=== PATIENT | male | born 1980 | race Hispanic/Latino ===

== ENCOUNTER 2016-10-24 09:29 | Emergency (ER) | payer MEDICAID, OTHER ==
[2016-10-24 09:30] VITALS: BMI 34.8
[2016-10-24 09:37] VITALS: RESP 16; TEMP 98.1
[2016-10-24] MEDS ORDERED: Sodium Chloride 0.9% 1,000 ML IV STA (10:01)
--- NOTE | 2016-10-24 10:15 | ED PDOC ---
Arrival/HPI - General Chief Complaint: Abdominal Pain Time Seen by Provider: 10/24/16 10:00 Historian: Patient - History of Present Illness Narrative History of Present Illness (Text): 10/24/16 10:12 36-year-old male presents today with right-sided abdominal pain and periumbilical pain. Patient states for the past 2 weeks he's noticed this uneasy feeling in the abdomen. There's been no nausea vomiting or diarrhea. He denies constipation. Patient states he's felt a lump around the periumbilical region. He states his been gradually worsening. Denies chest pain or shortness of breath. No urinary symptoms. No testicular pain. No medications have been taken for pain at home. He denies fevers or chills. Denies any recent trauma or injury. No other complaints Quality: Aching Severity Level: 1 Past Medical History - Provider Review Nursing Documentation Reviewed: Yes - Travel History Have you recently traveled outside [place] w/in the past 3 mons?: No - Tetanus Immunization Tetanus Immunization: Unknown - Past Medical History Past Medical History: No Previous - Cardiac Hx Cardiac Disorders: No - Pulmonary Hx Respiratory Disorders: No - Neurological Hx Neurological Disorder: No - HEENT Hx HEENT Disorder: No - Renal Hx Renal Disorder: No - Endocrine/Metabolic Hx Endocrine Disorders: No - Hematological/Oncological Hx Blood Disorders: No - Integumentary Hx Dermatological Disorder: No - Musculoskeletal/Rheumatological Hx Musculoskeletal Disorders: No - Gastrointestinal Hx Gastrointestinal Disorders: No - Genitourinary/Gynecological Hx Genitourinary Disorders: No - Psychiatric Hx Psychophysiologic Disorder: Yes Hx Anxiety: Yes Hx Bipolar Disorder: Yes Hx Depression: Yes Hx Post Traumatic Stress Disorder: Yes Hx Substance Use: Yes (COCAINE) - Past Surgical History Past Surgical History: No Previous - Suicidal Assessment Feels Threatened In Home Enviroment: No Family/Social History - Physician Review Nursing Documentation Reviewed: Yes Family/Social History: Unknown Family HX Smoking Status: Current Some Days Smoker Hx Alcohol Use: Yes (HX OF ABUSE) Hx Substance Use: Yes (COCAINE) Substance used: COCAINE, HEROIN Hx Substance Use Treatment: Yes Allergies/Home Meds Allergies/Adverse Reactions: Allergies No Known Allergies Allergy (Verified 10/24/16 09:31) Home Medications: Home Meds Medication Instructions Recorded Confirmed Gabapentin [Neurontin] 600 mg PO BID 01/28/16 05/29/17 Review of Systems - Review of Systems Constitutional: absent: Fatigue, Fevers Respiratory: absent: SOB, Cough Cardiovascular: absent: Chest Pain, Palpitations Gastrointestinal: Abdominal Pain. absent: Constipation, Diarrhea, Nausea, Vomiting Genitourinary Male: absent: Dysuria, Frequency, Hematuria Musculoskeletal: absent: Arthralgias, Back Pain, Neck Pain Skin: absent: Rash, Pruritis Neurological: absent: Headache, Dizziness Psychiatric: absent: Anxiety, Depression Physical Exam Vital Signs Reviewed: Yes Vital Signs Temp Pulse Resp BP Pulse Ox 10/24/16 12:15 59 L 16 109/67 100 10/24/16 11:14 53 L 16 118/69 98 10/24/16 10:54 64 16 111/67 98 10/24/16 09:45 76 16 127/69 99 10/24/16 09:35 98.1 F 76 16 121/76 97 Temperature: Afebrile Blood Pressure: Normal Pulse: Regular Respiratory Rate: Normal Appearance: Positive for: Well-Appearing, Non-Toxic, Comfortable Pain Distress: None Mental Status: Positive for: Alert and Oriented X 3 - Systems Exam Head: Present: Atraumatic Mouth: Present: Moist Mucous Membranes Neck: Present: Normal Range of Motion Respiratory/Chest: Present: Clear to Auscultation, Good Air Exchange. No: Respiratory Distress, Accessory Muscle Use Cardiovascular: Present: Regular Rate and Rhythm, Normal S1, S2. No: Murmurs Abdomen: Present: Tenderness (+ minimal periumbulical tenderness and rlq tenderness. + small umbilical hernia noted. no erythema), Normal Bowel Sounds. No: Distention, Peritoneal Signs Back: Present: Normal Inspection. No: CVA Tenderness Neurological: Present: GCS=15, Speech Normal Skin: Present: Warm, Dry, Normal Color. No: Rashes Psychiatric: Present: Alert, Oriented x 3 Medical Decision Making ED Course and Treatment: 10/24/16 10:14 Patient is nontoxic well appearing with stable vital signs presenting with abdominal pain CBC wnl CMPwnl Lipase wnl Urinalysis wnl CAT scan:FINDINGS: LOWER THORAX: Unremarkable. LIVER: Unremarkable. No gross lesion or ductal dilatation. GALLBLADDER AND BILE DUCTS: Unremarkable. PANCREAS: Unremarkable. No gross lesion or ductal dilatation. SPLEEN: Unremarkable. ADRENALS: Unremarkable. No mass. KIDNEYS AND URETERS: Unremarkable. No hydronephrosis. No solid mass. VASCULATURE: Unremarkable. No aortic aneurysm. BOWEL: Inflammatory changes are seen around the cecum. Several diverticula are seen. Findings are consistent with cecal diverticulitis. The findings are best appreciated on coronal images 48-55 APPENDIX: Normal appendix. PERITONEUM: Unremarkable. No free fluid. No free air. LYMPH NODES: UnrEmarkable. No enlarged lymph nodes. BLADDER: There is mild mural thickening in the bladder. This may be due to lack of distension. REPRODUCTIVE: Unremarkable. BONES: No acute fracture. OTHER FINDINGS: None. IMPRESSION: Inflammatory changes around the cecum with several diverticula consistent with cecal diverticulitis. The appendix is normal Patient reassessment: pt c/o pain rlq. minimal tenderness Discussed all results with patient in depth offered patient admission to the hospital for diverticulitis. pt without insurance.without f/u. pt states he cant stay in the hospital. will given PO cipro and flagyl rx. Patient has been advised to not leave the emergency room but has decided to go AGAINST MEDICAL ADVICE. The patient possesses capacity to make decisions and has voiced understanding to all my warnings of potential worsening of the condition for which medical care was sought. I have discussed all known and potential risks and consequences to the patient leaving AGAINST MEDICAL ADVICE. Patient is leaving against medical advise. AMA form signed. witness by LUIS Wick. Impression: diverticulitis Motrin every 6 hours as needed for pain Cipro one tablet twice daily. x10 days Flagyl one tablet three times daily x10 days Follow up with primary care physician within the next 2 days Follow up with the Gi doctor within the next 2 days. Return immediately if symptoms worsen persist or if new symptoms develop: High fevers, increasing pain, vomiting, diarrhea or any other concerning symptoms develop 10/24/16 12:55 - Lab Interpretations Lab Results: 10/24/16 10:00 10/24/16 10:00 Lab Results 10/24/16 10:00: WBC 9.5, RBC 4.67, Hgb 14.8, Hct 42.6, MCV 91.2, MCH 31.7, MCHC 34.7, RDW 12.8, Plt Count 162, MPV 12.3 H, Gran % 73.4 H, Lymph % (Auto) 17.3 L , [place] % (Auto) 7.3 H, Eos % (Auto) 1.8, Baso % (Auto) 0.2, Gran # 6.94 H, Lymph # 1.6, [place] # 0.7 H, Eos # 0.2, Baso # 0.02 10/24/16 10:00: Sodium 137, Potassium 4.4, Chloride 104, Carbon Dioxide 27, Anion Gap 10, BUN 14, Creatinine 0.7, Est GFR ( Amer) > 60, Est GFR (Non- Af Amer) > 60, Random Glucose 84, Calcium 9.6, Total Bilirubin 1.2, AST 26, ALT 23, Alkaline Phosphatase 75, Total Protein 7.3, Albumin 4.2, Globulin 3.1, Albumin/Globulin Ratio 1.4, Lipase 97 10/24/16 10:00: Urine Color Yellow, Urine Appearance Clear, Urine pH 6.5, Ur Specific [place] 1.010, Urine Protein Negative, Urine Glucose (UA) Negative, Urine Ketones Negative, Urine Blood Negative, Urine Nitrate Negative, Urine Bilirubin Negative, Urine Urobilinogen 0.2, Ur Leukocyte Esterase Negative - RAD Interpretation Radiology Orders: 10/24/16 10:01 ABD & PELVIS IV CONTRAST ONLY [CT] Stat - Medication Orders Current Medication Orders: Discontinued Medications Ciprofloxacin (Cipro) 500 mg PO ONCE STA PRN Reason: Protocol Stop: 10/24/16 12:50 Sodium Chloride (Sodium Chloride 0.9%) 1,000 mls @ 999 mls/hr IV .Q1H1M STA Stop: 10/24/16 11:01 Last Admin: 10/24/16 10:15 Dose: 999 mls/hr Iohexol (Omnipaque 350 100 Ml) Confirm Administered Dose 350 mg .ROUTE .STK-MED ONE Stop: 10/24/16 10:23 Metronidazole (Flagyl) 500 mg PO STAT STA PRN Reason: Protocol Stop: 10/24/16 12:50 Disposition/Present on Arrival - Present on Arrival Any Indicators Present on Arrival: No History of DVT/PE: No History of Uncontrolled Diabetes: No Urinary Catheter: No History of Decub. Ulcer: No History Surgical Site Infection Following: None - Disposition Have Diagnosis and Disposition been Completed?: Yes Diagnosis: Diverticulitis Disposition: AGAINST MEDICAL ADVICE Disposition Time: 12:45 Patient Plan: Other (AMA) Condition: FAIR Discharge Instructions (ExitCare): Diverticulitis (ED) Additional Instructions: Motrin every 6 hours as needed for pain Cipro one tablet twice daily. x10 days Flagyl one tablet three times daily x10 days Follow up with primary care physician within the next 2 days Follow up with the Gi doctor within the next 2 days. Return immediately if symptoms worsen persist or if new symptoms develop: High fevers, increasing pain, vomiting, diarrhea or any other concerning symptoms develop RETURN IF YOU WISH TO CONTINUE YOUR CARE. Prescriptions: Ciprofloxacin [Cipro] 500 mg PO BID #20 tab Ibuprofen [Motrin] 600 mg PO Q6H PRN #20 tab PRN Reason: pain/fever reduction metroNIDAZOLE [Flagyl] 500 mg PO TID #30 tab Referrals: Nik Paul MD [Staff Provider] - Follow up with primary Cristiano Garcia MD [Staff Provider] - [place] up [place] [facility] [place] [facility] [place] - Follow up with primary Forms: WORK NOTE
[2016-10-24] MEDS ORDERED: Iohexol 350 MG/100 ML VIAL ONE (10:22)
[2016-10-24 10:24] LABS: ADD MANUAL DIFF? NO
[2016-10-24 10:44] LABS: BASO # 0.02 K/mm3 (0.0-2.0); BASO % 0.2 % (0.0-3.0); EOS # 0.2 (0.0-0.7); EOS % 1.8 % (1.5-5.0); GRAN # 6.94 (1.4-6.5); GRAN % 73.4 % (50.0-68.0); HEMATOCRIT 42.6 % (42.0-52.0); LYMPH # 1.6 (1.2-3.4); LYMPH % 17.3 % (22.0-35.0); MEAN CELL VOLUME 91.2 fL (80.0-105.0); MEAN CORPUSCULAR HEMOGLOBIN 31.7 pg (25.0-35.0); MEAN CORPUSCULAR HGB CONC 34.7 g/dl (31.0-37.0); MEAN PLATELET VOLUME 12.3 fl (7.0-11.0); MONO # 0.7 (0.1-0.6); MONO % 7.3 % (1.0-6.0); PH,URINE 6.5 (4.7-8.0); PLATELET COUNT 162 10^3/uL (120.0-450.0); RED CELL DISTRIBUTION WIDTH 12.8 % (11.5-14.5); URINE BILIRUBIN NEGATIVE (NEGATIVE); URINE BLOOD NEGATIVE (NEGATIVE); URINE GLUCOSE (UA) NEGATIVE (NEGATIVE); URINE KETONE NEGATIVE (NEGATIVE); URINE LEUKOCYTE ESTERASE NEGATIVE Leu/uL (NEGATIVE); URINE PROTEIN NEGATIVE mg/dL (<30 mg/dL); URINE UROBILINOGEN 0.2 E.U./dL (<1 E.U./dL); WHITE BLOOD COUNT 9.5 10^3/ul (4.5-11.0)
[2016-10-24 10:46] LABS: ALB/GLOB RATIO 1.4 (1.1-1.8); ALKALINE PHOSPHATASE 75 U/L (38-133); ALT/SGPT 23 U/L (7-56); AST/SGOT 26 U/L (15-59); BILIRUBIN,TOTAL 1.2 mg/dL (0.2-1.3); BLOOD UREA NITROGEN 14 mg/dL (7-21); CALCIUM 9.6 mg/dL (8.4-10.5); CARBON DIOXIDE 27 mmol/L (21-33); CHLORIDE 104 mmol/L (98-107); GFR AFRICAN-AMERICAN > 60; GLUCOSE,RANDOM 84 mg/dL (70-110); LIPASE 97 U/L (23-300); POTASSIUM 4.4 mmol/L (3.6-5.0); SODIUM 137 mmol/L (132-148); TOTAL PROTEIN 7.3 g/dL (5.8-8.3); URINE APPEARANCE CLEAR (CLEAR); URINE COLOR YELLOW (YELLOW)
[2016-10-24 12:18] VITALS: O2SAT 100
--- NOTE | 2016-10-24 12:26 | CT ---
PROCEDURE: CT Abdomen and Pelvis with contrast HISTORY: abd pain COMPARISON: None. TECHNIQUE: Contrast dose: 100 cc of Omnipaque 350 Radiation dose: Total exam DLP = 1262 mGy-cm. This CT exam was performed using one or more of the following dose reduction techniques: Automated exposure control, adjustment of the mA and/or kV according to patient size, and/or use of iterative reconstruction technique. FINDINGS: LOWER THORAX: Unremarkable. LIVER: Unremarkable. No gross lesion or ductal dilatation. GALLBLADDER AND BILE DUCTS: Unremarkable. PANCREAS: Unremarkable. No gross lesion or ductal dilatation. SPLEEN: Unremarkable. ADRENALS: Unremarkable. No mass. KIDNEYS AND URETERS: Unremarkable. No hydronephrosis. No solid mass. VASCULATURE: Unremarkable. No aortic aneurysm. BOWEL: Inflammatory changes are seen around the cecum. Several diverticula are seen. Findings are consistent with cecal diverticulitis. The findings are best appreciated on coronal images 48-55 APPENDIX: Normal appendix. PERITONEUM: Unremarkable. No free fluid. No free air. LYMPH NODES: Unremarkable. No enlarged lymph nodes. BLADDER: There is mild mural thickening in the bladder. This may be due to lack of distension. REPRODUCTIVE: Unremarkable. BONES: No acute fracture. OTHER FINDINGS: None. IMPRESSION: Inflammatory changes around the cecum with several diverticula consistent with cecal diverticulitis. The appendix is normal
[2016-10-24 13:16] VITALS: BP 133/50; PULSE 63
== END 2016-10-24 13:17 | disposition left against medical advice (07) ==
LOC: ED 09:29
DX: K57.32 Diverticulitis of large intestine without perforation or abscess without bleeding (principal)
CPT/HCPCS: 74177; 80053; 81003; 83690; 85025; 96360; 99285; J7040; Q9967

== ENCOUNTER 2017-08-12 10:28 | Emergency (ER) | payer OTHER ==
[2017-08-12 10:29] VITALS: BMI 34.8
[2017-08-12 10:53] VITALS: TEMP 98.2
--- NOTE | 2017-08-12 11:16 | ED PDOC ---
Arrival/HPI - General Chief Complaint: Abnormal Skin Integrity Time Seen by Provider: 08/12/17 11:01 Historian: Patient - History of Present Illness Narrative History of Present Illness (Text): 08/12/17 11:18 37yr old male presents today with a 2 day history of 2 bumps to the neck and 1 week hx of rash to the lower abdomen over the waistline. pt denies fever/ chills. denies pain. no abdominal pain. no n/v/d/c. no dizziness or weakness. pt states he was worried about the bumps on his neck. pt states the bump started first on the left side of the neck and then he developed a bump on the right side of the neck. pt states they have decreased in size. pt states he did get his trevino trimmed by the jay and then he shaved it himself. pt also states he has a itchy rash to the lower abdomen right were the belt buckle sits. denies pain. no other complaints. Past Medical History - Provider Review Nursing Documentation Reviewed: Yes - Travel History Have you recently traveled outside [place] w/in the past 3 mons?: No - Infectious Disease Hx of Infectious Diseases: None - Tetanus Immunization Tetanus Immunization: Unknown - Past Medical History Past Medical History: No Previous - Cardiac Hx Cardiac Disorders: No - Pulmonary Hx Respiratory Disorders: No - Neurological Hx Neurological Disorder: No - HEENT Hx HEENT Disorder: No - Renal Hx Renal Disorder: No - Endocrine/Metabolic Hx Endocrine Disorders: No - Hematological/Oncological Hx Blood Disorders: No - Integumentary Hx Dermatological Disorder: No - Musculoskeletal/Rheumatological Hx Musculoskeletal Disorders: No - Gastrointestinal Hx Gastrointestinal Disorders: No - Genitourinary/Gynecological Hx Genitourinary Disorders: No - Psychiatric Hx Psychophysiologic Disorder: Yes Hx Anxiety: Yes Hx Bipolar Disorder: Yes Hx Depression: Yes Hx Post Traumatic Stress Disorder: Yes Hx Substance Use: Yes (COCAINE) - Past Surgical History Past Surgical History: No Previous - Anesthesia Hx Anesthesia: No Hx Anesthesia Reactions: No Hx Malignant Hyperthermia: No - Suicidal Assessment Feels Threatened In Home Enviroment: No Family/Social History - Physician Review Nursing Documentation Reviewed: Yes Family/Social History: Unknown Family HX Smoking Status: Current Some Days Smoker Hx Alcohol Use: No (HX OF ABUSE) Hx Substance Use: Yes (COCAINE) Substance used: COCAINE, HEROIN Hx Substance Use Treatment: Yes Allergies/Home Meds Allergies/Adverse Reactions: Allergies No Known Allergies Allergy (Verified 08/12/17 10:53) Home Medications: Home Meds Medication Instructions Recorded Confirmed Gabapentin [Neurontin] 1,800 mg PO DAILY 06/25/15 08/12/17 Review of Systems - Review of Systems Constitutional: absent: Fatigue, Fevers Respiratory: absent: SOB, Cough Cardiovascular: absent: Chest Pain, Palpitations Gastrointestinal: absent: Abdominal Pain, Nausea, Vomiting Genitourinary Male: absent: Dysuria, Frequency Musculoskeletal: absent: Arthralgias, Back Pain, Neck Pain Skin: Rash, Pruritis Neurological: absent: Headache, Dizziness Psychiatric: absent: Anxiety, Depression Physical Exam Vital Signs Reviewed: Yes Vital Signs Temp Pulse Resp BP Pulse Ox 08/12/17 10:38 98.2 F 75 20 124/81 98 Temperature: Afebrile Blood Pressure: Normal Pulse: Regular Respiratory Rate: Normal Appearance: Positive for: Well-Appearing, Non-Toxic, Comfortable Pain Distress: None Mental Status: Positive for: Alert and Oriented X 3 - Systems Exam Head: Present: Atraumatic Mouth: Present: Moist Mucous Membranes Neck: Present: Normal Range of Motion Respiratory/Chest: Present: Clear to Auscultation Cardiovascular: Present: Regular Rate and Rhythm Upper Extremity: Present: Normal ROM Lower Extremity: Present: Normal ROM Neurological: Present: GCS=15, Speech Normal Skin: Present: Warm, Dry, Rashes (right side of neck; there is 1 small erythematous non tender raised papule left side of neck; there is a 1 small approx 2cm erythematous raised papules; without surrounding erythema or edema with small central rivera; ), Normal Color, Other (there is 3cm x 3cm area of erythema/irritation without warmth noted to the mid lower abdomen at the level of the belt buckle. ) Psychiatric: Present: Alert, Oriented x 3 Medical Decision Making ED Course and Treatment: 08/12/17 11:30 37yr old male with 2 pustules noted to the neck bilaterally. and irritation noted to the lower abdomen at the belt line. pt with folliculitis/early abscess formation. will place patient on bactrim and advised warm compresses. will given patient rx for hydrocortisone cream 1%. advised f/u with adjusto writer operator. advised immediate return if symptoms worsen,persist or if new symptoms develop Patient verbalizes understanding of discharge instructions and need for immediate followup. all aspects of this case were discussed the attending of record. Impression: Folliculitis/early abscess, rash. bactrim 1 tablet twice daily x 7 days warm compresses apply hydrocortisone to the rash on the abdomen. follow up with the adjusto writer operator within the next 2 days. follow up with the primary care physician/medical clinic within the next 2 day. return if symptoms worsen,persist or if new symptoms develop. Disposition/Present on Arrival - Present on Arrival Any Indicators Present on Arrival: No History of DVT/PE: No History of Uncontrolled Diabetes: No Urinary Catheter: No History of Decub. Ulcer: No History Surgical Site Infection Following: None - Disposition Have Diagnosis and Disposition been Completed?: Yes Diagnosis: Rash, Folliculitis Disposition: HOME/ ROUTINE Disposition Time: 11:13 Patient Plan: Discharge Condition: GOOD Discharge Instructions (ExitCare): Folliculitis (DC), Skin Rash (DC) Additional Instructions: bactrim 1 tablet twice daily x 7 days warm compresses apply hydrocortisone to the rash on the abdomen. follow up with the adjusto writer operator within the next 2 days. follow up with the primary care physician/medical clinic within the next 2 day. return if symptoms worsen,persist or if new symptoms develop. Prescriptions: Hydrocortisone 1% Cream [Cortizone 1% Cream] 1 appl TP BID #1 tube Sulfamethoxazole/Trimethoprim [Bactrim DS 800 mg-160 mg] 1 tab PO BID #14 tab Referrals: Gabe Duarte MD [Staff Provider] - Follow up with primary Radha Vences MD [Staff Provider] - Follow up with primary Forms: [facility] (Romanian), WORK NOTE
[2017-08-12 11:50] VITALS: BP 125/73; PULSE 78; RESP 18; O2SAT 99
== END 2017-08-12 11:42 | disposition home or self-care (01) ==
LOC: ED 10:28
DX: L73.9 Follicular disorder, unspecified (principal); R21 Rash and other nonspecific skin eruption; F17.200 Nicotine dependence, unspecified, uncomplicated

== ENCOUNTER 2018-02-07 10:50 | Emergency (ER) | payer MEDICAID ==
[2018-02-07 10:50] VITALS: BMI 34.8
[2018-02-07 11:29] VITALS: RESP 18; TEMP 98
--- NOTE | 2018-02-07 12:03 | ED PDOC ---
Arrival/HPI - General Chief Complaint: Abnormal Skin Integrity Time Seen by Provider: 02/07/18 11:19 Historian: Patient - History of Present Illness Narrative History of Present Illness (Text): 02/07/18 11:57 38 year old white male with PMH of diverticulitis and substance abuse who presents to the ED c/o R knee pain x 1 year. Pain is located medially with intermittent radiation to anterior knee. The pain is sharp, worse with movement and being stationary for extended periods of time. Pt states he hit the medial aspect of his R knee with a hammer approx 1 year ago, which he believes precipitated the pain. He says knee intermittently "pops". Pt works as a manufacturer representative. No recent trauma, recent travel, or tick bites. No recent surgeries, extended immobilization, history of malignancy. Denies fever, swelling, warmth, rash, problems with gait, weakness, SOB, calf pain, calf swelling, peripheral numbness or paresthesias, testicular pain or swelling, penile discharge. Time/Duration: Other (1 year) Symptom Onset: Gradual Symptom Course: Unchanged Quality: Stabbing Severity Level: 4, Mild Modifying Factors (Text): 02/07/18 11:57 Worse with staying in one position for extended periods, worse on ambulation Past Medical History - Provider Review Nursing Documentation Reviewed: Yes - Infectious Disease Hx of Infectious Diseases: None - Tetanus Immunization Tetanus Immunization: Unknown - Cardiac Hx Cardiac Disorders: No - Pulmonary Hx Respiratory Disorders: No - Neurological Hx Neurological Disorder: No - HEENT Hx HEENT Disorder: No - Renal Hx Renal Disorder: No - Endocrine/Metabolic Hx Endocrine Disorders: No - Hematological/Oncological Hx Blood Disorders: No - Integumentary Hx Dermatological Disorder: No - Musculoskeletal/Rheumatological Hx Back Pain: Yes - Gastrointestinal Hx Diverticulitis: Yes - Genitourinary/Gynecological Hx Genitourinary Disorders: No - Psychiatric Hx Psychophysiologic Disorder: Yes Hx Anxiety: Yes Hx Bipolar Disorder: Yes Hx Depression: Yes Hx Post Traumatic Stress Disorder: Yes Hx Substance Use: Yes (COCAINE) - Past Surgical History Past Surgical History: No Previous - Anesthesia Hx Anesthesia: No Hx Anesthesia Reactions: No Hx Malignant Hyperthermia: No - Suicidal Assessment Feels Threatened In Home Enviroment: No Family/Social History Family/Social History: Unknown Family HX Smoking Status: Current Some Days Smoker Hx Alcohol Use: No (HX OF ABUSE) Hx Substance Use: Yes (COCAINE. Clean 5 years) Substance used: COCAINE, HEROIN Hx Substance Use Treatment: Yes Allergies/Home Meds Allergies/Adverse Reactions: Allergies No Known Allergies Allergy (Verified 08/12/17 10:53) Home Medications: Home Meds Medication Instructions Recorded Confirmed Gabapentin [Neurontin] 1,800 mg PO TID 06/25/15 02/07/18 Review of Systems - Review of Systems Constitutional: Normal. absent: Fevers Respiratory: Normal. absent: SOB Cardiovascular: Normal. absent: Chest Pain Gastrointestinal: Normal. absent: Abdominal Pain, Stool Changes, Nausea, Vomiting Genitourinary Male: Normal Musculoskeletal: Arthralgias, Back Pain, Myalgias. absent: Joint Swelling Skin: Normal. absent: Rash, Skin Lesions, Cellulitis Neurological: Normal. absent: Focal Weakness, Gait Changes Physical Exam Vital Signs Reviewed: Yes Vital Signs Temp Pulse Resp BP Pulse Ox 02/07/18 13:01 98 F 71 18 105/74 99 02/07/18 11:29 98 F 82 18 136/81 97 Temperature: Afebrile Blood Pressure: Normal Pulse: Regular Respiratory Rate: Normal Appearance: Positive for: Well-Appearing, Non-Toxic, Comfortable Pain Distress: None Mental Status: Positive for: Alert and Oriented X 3 - Systems Exam Respiratory/Chest: Present: Clear to Auscultation, Good Air Exchange. No: Respiratory Distress, Accessory Muscle Use Cardiovascular: Present: Regular Rate and Rhythm, Normal S1, S2, Peripheal Pulses Present. No: Murmurs Back: Present: Normal Inspection. No: Pain with Leg Raise Lower Extremity: Present: Normal Inspection, NORMAL PULSES, Normal ROM, Neurovascularly Intact, Capillary Refill < 2 s. No: Edema, CALF TENDERNESS, Roberto's Sign, Tenderness, Swelling, Erythema, Deformity, Temperature Abnormalties Neurological: Present: Motor Func Grossly Intact, Normal Sensory Function, Gait Normal Skin: Present: Warm, Dry, Normal Color. No: Rashes, Hot, Cold, Pale Psychiatric: Present: Alert, Oriented x 3 Medical Decision Making ED Course and Treatment: 02/07/18 12:06 38 year old male presenting with chronic R medial knee pain, believed to be precipitated by a hit with a hammer 1 year prior. No evidence of infectious process. Will get R knee xray to r/o osteoarthritis vs. fracture vs. tendinitis Wells Criteria Score 0, no calf pain or swelling, no SOB. No concern for DVT. Plan discussed with Dr. Morris, who agrees R knee Xray: FINDINGS: BONES: Normal. No fracture. JOINTS: Normal. No osteoarthritis. JOINT EFFUSION: None. OTHER FINDINGS: None. IMPRESSION: Normal radiographs of the right knee. Impression: chronic knee pain Pt educated on possible causes of knee pain Pts R knee wrapped with RICHIE bandage Prescription for Mobic given, 15mg once daily, 30 days Work note given Advised to avoid strenuous activity Told to followup with orthopedics as soon as possible Educated on when to come back to ED (calf pain, swelling, fever, red warm joint) Dr. Morris agrees with impression and plan 02/07/18 13:06 - RAD Interpretation Radiology Orders: 02/07/18 11:50 KNEE RIGHT 2 VIEWS (AP & LAT) [RAD] Stat Manager Of Sales: Radiologist Donald Criteria for PE - Wells Criteria for Pulmonary Embolism Clinical Signs and Symptoms of DVT: No P.E is #1 Diagnosis, or Equally Likely: No Heart Rate >100: No Immobilization at least 3 days;Surgery previous 4 weeks: No Previous, objectively diagnosed PE or DVT: No Hemoptysis: No Malignancy w/treatment within 6 months, or palliative: No Total Score: 0 Disposition/Present on Arrival - Present on Arrival Any Indicators Present on Arrival: No History of DVT/PE: No History of Uncontrolled Diabetes: No Urinary Catheter: No History of Decub. Ulcer: No History Surgical Site Infection Following: None - Disposition Have Diagnosis and Disposition been Completed?: Yes Diagnosis: Knee pain, chronic Disposition: HOME/ ROUTINE Disposition Time: 12:00 Patient Plan: Discharge Condition: GOOD Discharge Instructions (ExitCare): Chronic Knee Pain Additional Instructions: Followup with orthopedics Continue to wear knee brace or RICHIE bandage as needed Take OTC Motrin 400mg q4-6h as needed for pain Return for calf pain, calf swelling, fever, joint swelling or redness Prescriptions: Meloxicam 15 mg PO DAILY 30 Days #30 tablet Referrals: Cruz Paz MD [Staff Provider] - Follow up with primary Sheila Parmar MD [Medical Doctor] - Follow up with primary Forms: [employer] (Bengali), WORK NOTE
--- NOTE | 2018-02-07 12:40 | RAD ---
Date of service: 02/07/2018 PROCEDURE: Right Knee Radiographs. HISTORY: Right knee pain COMPARISON: None. FINDINGS: BONES: Normal. No fracture. JOINTS: Normal. No osteoarthritis. JOINT EFFUSION: None. OTHER FINDINGS: None. IMPRESSION: Normal radiographs of the right knee.
[2018-02-07 13:02] VITALS: BP 105/74; PULSE 71; O2SAT 99
== END 2018-02-07 13:04 | disposition home or self-care (01) ==
LOC: ED 10:50
DX: G89.29 Other chronic pain (principal); M25.561 Pain in right knee

== ENCOUNTER 2018-04-23 13:52 | Emergency (ER) | payer MEDICAID ==
[2018-04-23 13:57] VITALS: BMI 33.5
[2018-04-23 14:00] VITALS: RESP 18; O2SAT 99
--- NOTE | 2018-04-23 14:39 | ED PDOC ---
Arrival/HPI - General Chief Complaint: Lower Extremity Problem/Injury Time Seen by Provider: 04/23/18 14:13 Historian: Patient - History of Present Illness Narrative History of Present Illness (Text): 04/23/18 14:41 A 38 year old male, whose past medical history includes diverticulitis, bipolar/depression/anxiety/PTSD/substance abuse(cocaine), presents to the emergency department complaining of right knee pain for more than 1 week. Patient reports also experiencing pain to right calf and back of right thigh. States he took Motrin 1200mg, however had no relief of pain. Patient denies any injury/trauma, or any other complaints at this time. No PMD Past Medical History - Provider Review Nursing Documentation Reviewed: Yes - Infectious Disease Hx of Infectious Diseases: None - Tetanus Immunization Tetanus Immunization: Unknown - Past Medical History Past Medical History: No Previous - Cardiac Hx Cardiac Disorders: No - Pulmonary Hx Respiratory Disorders: No - Neurological Hx Neurological Disorder: No - HEENT Hx HEENT Disorder: No - Renal Hx Renal Disorder: No - Endocrine/Metabolic Hx Endocrine Disorders: No - Hematological/Oncological Hx Blood Disorders: No - Integumentary Hx Dermatological Disorder: No - Musculoskeletal/Rheumatological Hx Musculoskeletal Disorders: Yes Hx Back Pain: Yes - Gastrointestinal Hx Gastrointestinal Disorders: Yes Hx Diverticulitis: Yes - Genitourinary/Gynecological Hx Genitourinary Disorders: No - Psychiatric Hx Psychophysiologic Disorder: Yes Hx Anxiety: Yes Hx Bipolar Disorder: Yes Hx Depression: Yes Hx Post Traumatic Stress Disorder: Yes Hx Substance Use: Yes (COCAINE. Clean 5 years) - Past Surgical History Past Surgical History: No Previous - Anesthesia Hx Anesthesia: No Hx Anesthesia Reactions: No Hx Malignant Hyperthermia: No - Suicidal Assessment Feels Threatened In Home Enviroment: No Family/Social History - Physician Review Nursing Documentation Reviewed: Yes Family/Social History: No Known Family HX Smoking Status: Current Some Days Smoker Hx Alcohol Use: No (HX OF ABUSE) Hx Substance Use: Yes (COCAINE. Clean 5 years) Substance used: COCAINE, HEROIN Hx Substance Use Treatment: Yes Allergies/Home Meds Allergies/Adverse Reactions: Allergies No Known Allergies Allergy (Verified 08/12/17 10:53) Home Medications: Home Meds Medication Instructions Recorded Confirmed Gabapentin [Neurontin] 1,800 mg PO TID 06/25/15 02/07/18 Review of Systems - Physician Review All systems were reviewed & negative as marked: Yes - Review of Systems Constitutional: absent: Fevers, Other (no injuries/trauma) Musculoskeletal: Other (right knee/calf pain, and pain to back of right thigh) Physical Exam - Physical Exam Narrative Physical Exam (Text): Gen: VS reviewed, alert, well developed, well nourished, nontoxic, mild distress. ENT: normal pharynx. Eye: EOMI, PERRL. Neck: no JVD, supple, no adenopathy. CV: regular rate, regular rhythm, no rubs, no murmur, no gallops, S1, S2, pulses equal and strong. Pulm: no distress, clear to auscultation, no wheeze, no rhonchi, breath sounds equal, no rales. Abd: soft, nontender, no guarding, no rebound, no rigidity, normal bowel sounds. Ext: mild swelling to right lower leg compared to contralateral leg. Skin: good color, no rash, no cyanosis. Psych: responds appropriately to questions, normal affect. Neuro: oriented x 3, CN2-12 intact grossly, motor intact, sensation intact. Vital Signs Reviewed: Yes Vital Signs Temp Pulse Resp BP Pulse Ox 04/23/18 13:56 98.6 F 72 18 115/81 99 Temperature: Afebrile Blood Pressure: Normal Pulse: Regular Respiratory Rate: Normal Appearance: Positive for: Well-Appearing, Non-Toxic, Comfortable Pain Distress: None Mental Status: Positive for: Alert and Oriented X 3 Medical Decision Making ED Course and Treatment: 04/23/18 14:43 Impression: 38 year old male with pain to right knee, right calf, and back of right thigh. Plan: -- Lower Extremity Ultrasound -- Reassess and disposition Prior Visits: Notes and results from previous visits were reviewed. Patient was last seen in the emergency department on 02/07/2018 for intermittently radiating right knee pain. Patient was discharged home. Progress Notes: 04/23/18 16:29 patient seen for right leg pain. with the difference in the circumference of the calf a US was done to rule out DVT. there was no acute injury to suggest ligamentous injury. it likely that the patient has a torn meniscus, especially since he has very focused pain in the medial right knee which is exacerbated with climbing stairs. i have discussed with the patient the indications for MRI of the knee and the current clinical presentation does not warrant emergent MRI. patient understands MRI indications and will follow up with his pcp when return to clinical duties. patient also noted to have secondary pains in the distal and proximal leg which could be secondary pain for compensated gait. - RAD Interpretation Narrative RAD Interpretations (Text): 04/23/18 16:30 preliminary US report discussed with US tech- negative for right LE DVT 04/23/18 17:00 US reviewed by radiologist, shows: FINDINGS: The visualized deep venous system of the right lower extremity is sonographically normal and compressible. Normal waveforms and augmentation are seen. There is no sonographic evidence for deep venous thrombosis in the visualized segments of the right lower extremity. IMPRESSION: 1. No sonographic evidence for deep venous thrombosis in the visualized segments of the right lower extremity. Environmental Engineering Professor: Radiologist - Scribe Statement The provider has reviewed the documentation as recorded by the Molly Molina Provider Scribe Attestation: All medical record entries made by the Scribe were at my direction and personally dictated by me. I have reviewed the chart and agree that the record accurately reflects my personal performance of the history, physical exam, medical decision making, and the department course for this patient. I have also personally directed, reviewed, and agree with the discharge instructions and disposition. Disposition/Present on Arrival - Present on Arrival Any Indicators Present on Arrival: No History of DVT/PE: No History of Uncontrolled Diabetes: No Urinary Catheter: No History of Decub. Ulcer: No History Surgical Site Infection Following: None - Disposition Have Diagnosis and Disposition been Completed?: Yes Diagnosis: Knee pain Disposition: HOME/ ROUTINE Disposition Time: 16:32 Patient Plan: Discharge Patient Problems: Current Active Problems Problem Status Onset Knee pain Acute Condition: STABLE Discharge Instructions (ExitCare): Knee Pain (DC) Prescriptions: Ibuprofen [Motrin Tab] 800 mg PO QID 30 Days #120 tab Omeprazole Magnesium [Prilosec] 10 mg PO DAILY 30 Days #30 [email or web address] Forms: [employer] (Estonian)
--- NOTE | 2018-04-23 17:08 | US ---
PROCEDURE: Right lower extremity venous US HISTORY: Leg pain and swelling. Evaluate for DVT. PHYSICIAN(S): Edmar Alexander M.D. TECHNIQUE: Duplex sonography and color-flow Doppler with graded compression were used to evaluate the deep venous system of the right lower extremity. FINDINGS: The visualized deep venous system of the right lower extremity is sonographically normal and compressible. Normal waveforms and augmentation are seen. There is no sonographic evidence for deep venous thrombosis in the visualized segments of the right lower extremity. IMPRESSION: 1. No sonographic evidence for deep venous thrombosis in the visualized segments of the right lower extremity.
[2018-04-23 17:40] VITALS: BP 110/75; PULSE 70; TEMP 98.5
== END 2018-04-23 16:45 | disposition home or self-care (01) ==
LOC: ED 13:52
DX: M25.561 Pain in right knee (principal)

== ENCOUNTER 2018-08-08 13:56 | Emergency (ER) | payer MEDICAID ==
[2018-08-08 13:57] VITALS: BMI 33.5
[2018-08-08 14:20] VITALS: BP 110/71; PULSE 77; RESP 16; TEMP 98.6; O2SAT 97
[2018-08-08] MEDS ORDERED: Dexamethasone 4 mg/1 ml IVP STA (15:28)
[2018-08-08] MEDS ORDERED: Dexamethasone 4 mg/1 ml ONE (15:54)
--- NOTE | 2018-08-08 16:21 | ED PDOC ---
Arrival/HPI - General Chief Complaint: Abnormal Skin Integrity Historian: Patient - History of Present Illness Narrative History of Present Illness (Text): 08/08/18 16:21 38 year old male, whose past medical history includes diverticulitis, bipolar, depression, anxiety, PTSD, and substance abuse(cocaine), presents to the emergency department complaining of rash for the past day. 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 Patient denies any fevers, chills, headache, dizziness, chest pain, shortness of breath, dyspnea on exertion, cough, abdominal pain, nausea, vomiting, diarrhea, back pain, neck pain, or any other complaints. Time/Duration: 24 hours Symptom Onset: Gradual Symptom Course: Unchanged Activities at Onset: Light Context: Home Past Medical History - Provider Review Nursing Documentation Reviewed: Yes - Infectious Disease Hx of Infectious Diseases: None - Tetanus Immunization Tetanus Immunization: Unknown - Past Medical History Past Medical History: No Previous - Cardiac Hx Cardiac Disorders: No - Pulmonary Hx Respiratory Disorders: No - Neurological Hx Neurological Disorder: No - HEENT Hx HEENT Disorder: No - Renal Hx Renal Disorder: No - Endocrine/Metabolic Hx Endocrine Disorders: No - Hematological/Oncological Hx Blood Disorders: No - Integumentary Hx Dermatological Disorder: No - Musculoskeletal/Rheumatological Hx Musculoskeletal Disorders: Yes Hx Back Pain: Yes - Gastrointestinal Hx Gastrointestinal Disorders: Yes Hx Diverticulitis: Yes - Genitourinary/Gynecological Hx Genitourinary Disorders: No - Psychiatric Hx Psychophysiologic Disorder: Yes Hx Anxiety: Yes Hx Bipolar Disorder: Yes Hx Depression: Yes Hx Post Traumatic Stress Disorder: Yes Hx Substance Use: Yes - Past Surgical History Past Surgical History: No Previous - Anesthesia Hx Anesthesia: No Hx Anesthesia Reactions: No Hx Malignant Hyperthermia: No - Suicidal Assessment Feels Threatened In Home Enviroment: No Family/Social History - Physician Review Nursing Documentation Reviewed: Yes Family/Social History: No Known Family HX Smoking Status: Current Some Days Smoker Hx Alcohol Use: Yes (HX OF ABUSE) Hx Substance Use: Yes Substance used: COCAINE, HEROIN Hx Substance Use Treatment: Yes Allergies/Home Meds Allergies/Adverse Reactions: Allergies No Known Allergies Allergy (Verified 08/08/18 14:14) Home Medications: Home Meds Medication Instructions Recorded Confirmed Gabapentin [Neurontin] 1,800 mg PO TID 06/25/15 08/08/18 Review of Systems - Physician Review All systems were reviewed & negative as marked: Yes - Review of Systems Constitutional: absent: Fevers Respiratory: absent: SOB, Cough Cardiovascular: absent: Chest Pain Gastrointestinal: absent: Abdominal Pain, Diarrhea, Nausea, Vomiting Musculoskeletal: absent: Back Pain, Neck Pain Skin: Rash Neurological: absent: Headache, Dizziness Physical Exam Vital Signs Reviewed: Yes Vital Signs Temp Pulse Resp BP Pulse Ox 08/08/18 14:15 98.6 F 77 16 110/71 97 Temperature: Afebrile Blood Pressure: Normal Pulse: Regular Respiratory Rate: Normal Appearance: Positive for: Well-Appearing, Non-Toxic, Comfortable Pain Distress: None Mental Status: Positive for: Alert and Oriented X 3 - Systems Exam Head: Present: Atraumatic, Normocephalic Pupils: Present: PERRL Extroacular Muscles: Present: EOMI Conjunctiva: Present: Normal Mouth: Present: Moist Mucous Membranes Neck: Present: Normal Range of Motion Respiratory/Chest: Present: Clear to Auscultation, Good Air Exchange. No: Respiratory Distress, Accessory Muscle Use Cardiovascular: Present: Regular Rate and Rhythm, Normal S1, S2. No: Murmurs Abdomen: No: Tenderness, Distention, Peritoneal Signs Back: Present: Normal Inspection Upper Extremity: Present: Normal Inspection. No: Cyanosis, Edema Lower Extremity: Present: Normal Inspection. No: Edema Neurological: Present: GCS=15, CN II-XII Intact, Speech Normal Skin: Present: Warm, Dry, Rashes (muscular rash to back, neck, and chest), Normal Color Psychiatric: Present: Alert, Oriented x 3, Normal Insight, Normal Concentration Medical Decision Making ED Course and Treatment: 08/08/18 16:19 Impression: 38 year old male, who presents to the emergency department complaining of rash. Plan: -- Decadron -- Reassess and disposition Prior Visits: Notes and results from previous visits were reviewed. Progress Notes: - Medication Orders Current Medication Orders: Discontinued Medications Dexamethasone (Decadron Inj) 10 mg IVP STAT STA Stop: 08/08/18 15:29 Last Admin: 08/08/18 15:50 Dose: 10 mg IVP Administration Document 08/08/18 15:50 EQ (Rec: 08/08/18 15:50 EQ [id number] Charges for Administration # of IVP Administrations 1 - Scribe Statement The provider has reviewed the documentation as recorded by the Molly Steph Quach Provider Scribe Attestation: All medical record entries made by the Rukhsanaibe were at my direction and personally dictated by me. I have reviewed the chart and agree that the record accurately reflects my personal performance of the history, physical exam, medical decision making, and the department course for this patient. I have also personally directed, reviewed, and agree with the discharge instructions and disposition. Disposition/Present on Arrival - Present on Arrival Any Indicators Present on Arrival: No History of DVT/PE: No History of Uncontrolled Diabetes: No Urinary Catheter: No History of Decub. Ulcer: No History Surgical Site Infection Following: None - Disposition Have Diagnosis and Disposition been Completed?: Yes Diagnosis: Rash Disposition: HOME/ ROUTINE Disposition Time: 15:15 Condition: GOOD Discharge Instructions (ExitCare): Skin Rash (DC) Additional Instructions: JAZMIN WALKER, thank you for letting us take care of you today. The emergency medical care you received today was directed at your acute symptoms. If you were prescribed any medication, please fill it and take as directed. It may take several days for your symptoms to resolve. Return to the Emergency Department if your symptoms worsen, do not improve, or if you have any other problems. Please contact your doctor or call one of the physicians/clinics you have been referred to that are listed on the Patient Visit Information form that is included in your discharge packet. Bring any paperwork you were given at discharge with you along with any medications you are taking to your follow up visit. Our treatment cannot replace ongoing medical care by a primary care provider outside of the emergency department. Thank you for allowing the [facility] team to be part of your care today. Follow up with the [facility]ales senior specialist or your primary care doctor in 2-3 days for re- evaluation and further management. Prescriptions: Ibuprofen [Motrin] 600 mg PO Q6 PRN #20 tab PRN Reason: Pain, Moderate (4-7) predniSONE [Prednisone] 40 mg PO DAILY #10 tab Referrals: Radha Vences MD [Staff Provider] - Follow up with primary Jarvis Talley MD [Primary Care Provider] - Follow up with primary Forms: [employer] (Tunisian)
== END 2018-08-08 15:58 | disposition home or self-care (01) ==
LOC: ED 13:56
DX: R21 Rash and other nonspecific skin eruption (principal)
CPT/HCPCS: 96374; 99282; J1100

== ENCOUNTER 2018-10-16 19:07 | Emergency (ER) | payer MEDICAID ==
[2018-10-16 19:20] VITALS: BMI 34.2
[2018-10-16 19:25] VITALS: BP 117/75; RESP 18; TEMP 98.8
[2018-10-16] MEDS ORDERED: TDAP Vaccine 0.5 mL Syr IM ONE (20:02)
--- NOTE | 2018-10-16 20:04 | ED PDOC ---
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 Reports no numbness, decrease in ROM, or any other injury. Has no other complaints. Past Medical History - Infectious Disease Hx of Infectious Diseases: None - Tetanus Immunization Tetanus Immunization: Unknown - Past Medical History Past Medical History: No Previous - Cardiac Hx Cardiac Disorders: No - Pulmonary Hx Respiratory Disorders: No - Neurological Hx Neurological Disorder: No - HEENT Hx HEENT Disorder: No - Renal Hx Renal Disorder: No - Endocrine/Metabolic Hx Endocrine Disorders: No - Hematological/Oncological Hx Blood Disorders: No - Integumentary Hx Dermatological Disorder: No - Musculoskeletal/Rheumatological Hx Musculoskeletal Disorders: Yes Hx Back Pain: Yes - Gastrointestinal Hx Gastrointestinal Disorders: Yes Hx Diverticulitis: Yes - Genitourinary/Gynecological Hx Genitourinary Disorders: No - Psychiatric Hx Psychophysiologic Disorder: Yes Hx Anxiety: Yes Hx Bipolar Disorder: Yes Hx Depression: Yes Hx Post Traumatic Stress Disorder: Yes Hx Substance Use: Yes - Past Surgical History Past Surgical History: No Previous - Anesthesia Hx Anesthesia: No Hx Anesthesia Reactions: No Hx Malignant Hyperthermia: No - Suicidal Assessment Feels Threatened In Home Enviroment: No Family/Social History Family/Social History: No Known Family HX Smoking Status: Current Some Days Smoker Hx Alcohol Use: Yes (HX OF ABUSE) Hx Substance Use: Yes Substance used: COCAINE, HEROIN Hx Substance Use Treatment: Yes Allergies/Home Meds Allergies/Adverse Reactions: Allergies No Known Allergies Allergy (Verified 10/16/18 19:20) Home Medications: Home Meds Medication Instructions Recorded Confirmed Gabapentin [Neurontin] 1,800 mg PO TID 06/25/15 08/08/18 Review of Systems - Review of Systems Constitutional: absent: Fatigue, Fevers Musculoskeletal: absent: Arthralgias, Back Pain, Neck Pain Skin: Laceration. absent: Rash, Skin Lesions Neurological: absent: Headache, Dizziness Physical Exam Vital Signs Temp Pulse Resp BP Pulse Ox 10/16/18 19:22 98.8 F 92 H 18 117/75 95 Temperature: Afebrile Blood Pressure: Normal Pulse: Regular Respiratory Rate: Normal Appearance: Positive for: Well-Appearing, Non-Toxic, Comfortable Pain Distress: None Mental Status: Positive for: Alert and Oriented X 3 - Systems Exam Upper Extremity: Present: Normal Inspection, Normal ROM. No: Edema Lower Extremity: Present: NORMAL PULSES, Normal ROM, Neurovascularly Intact, Capillary Refill < 2 s, Other (+2 cm laceration to the anterior mid L thigh). No: Edema, Tenderness, Swelling, Erythema, Temperature Abnormalties Neurological: Present: GCS=15, CN II-XII Intact, Speech Normal, Motor Func Grossly Intact, Normal Sensory Function Skin: Present: Warm, Dry, Normal Color. No: Rashes Psychiatric: Present: Alert, Oriented x 3, Normal Insight, Normal Concentration Medical Decision Making ED Course and Treatment: 10/16/18 20:03 Plan : - tdap IM - laceration repair Advised to follow up with pmd or workman's comp in 2 days for wound check, advised to have sutures removed after 7 days. Procedure: Wound Repair - Time Performed Time Performed: 20:00 - Time Out Time Out: Side verified, Site verified, Patient ID confirmed - Consent Obtained Consent obtained: Verbal - Performed by Performed by: Mid-level Provider - Indications Indication(s):: Laceration - Location Location:: Left, Thigh Shape:: Linear Dimensions Length cm: 2 Depth:: Epidermis - Anesthetic Technique Anesthetic Technique: Local Local/Regional Anesthetic:: Lidocaine 1% - Debris Debris:: None - Irrigated Irrigated with ml of normal saline: 50 - Complexity Complexity:: Simple (one layer) - Wound repair method Sutures:: # (4), Size (5-0 nylon) - Complications Complications: none - Patient tolerated procedure Patient Tolerated Procedure:: Well (clean dressing applied) - PA / ENTRY CLERK / Resident Statement MD/DO has reviewed & agrees with the documentation as recorded. Disposition/Present on Arrival - Present on Arrival Any Indicators Present on Arrival: No History of DVT/PE: No History of Uncontrolled Diabetes: No Urinary Catheter: No History of Decub. Ulcer: No History Surgical Site Infection Following: None - Disposition Have Diagnosis and Disposition been Completed?: Yes Diagnosis: Thigh laceration Disposition: HOME/ ROUTINE Disposition Time: 20:15 Patient Plan: Discharge Condition: STABLE Discharge Instructions (ExitCare): Wound Care, Laceration Repair With Stitches (DC) Additional Instructions: Follow up with pmd or workman's comp in 2 days for wound check, have sutures removed after 7 days. Return to the ER at any time for any new or worsening symptoms. Forms: [employer] ([place]), WORK NOTE
[2018-10-16 21:40] VITALS: PULSE 84; O2SAT 97
== END 2018-10-16 21:39 | disposition home or self-care (01) ==
LOC: ED 19:07
DX: S71.112A Laceration without foreign body, left thigh, initial encounter (principal); W45.8XXA Other foreign body or object entering through skin, initial encounter; Z23 Encounter for immunization; F31.9 Bipolar disorder, unspecified